=== PATIENT | female | born 1990 | race Caucasian/White ===

== ENCOUNTER → 2019-10-18 | Outpatient (CLI) | payer OTHER | LOC: LAB 10:14 | DX: R06.02 Shortness of breath (principal); M79.10 Myalgia, unspecified site; R53.83 Other fatigue; Z20.828 Contact with and (suspected) exposure to other viral communicable diseases ==

== ENCOUNTER 2019-10-24 08:22 | Emergency (ER) | payer OTHER ==
[~2019-10-24] VITALS: Wt 83.0 kg
[2019-10-24] MEDS ORDERED: NAPROXEN500 MG PO (08:58)
[2019-10-24] MEDS ORDERED: EXCEDRIN EXTRA1 EACH PO (08:58)
[2019-10-24] MEDS ORDERED: ZOFRAN ODT4 MG PO (08:59)
[2019-10-24] MEDS ORDERED: DAILY VALUE1 EACH PO (08:59)
[2019-10-24] MEDS ORDERED: KETOROLAC TROME10 MG PO (09:00)
[2019-10-24 09:23] LABS: EOS # 0.1 (0.04-0.40); EOS % 0.9 % (1.0-5.0); HEMATOCRIT 45.5 % (37.0-47.0); HEMOGLOBIN 15.2 g/dL (12.5-16.0); LYMPH# 1.6 (1.50-4.00); MEAN CELL VOLUME 89 fl (78-100); MEAN CORPUSCULAR HEMOGLOBIN 30 pg (27-31); MEAN CORPUSCULAR HGB CONC 33 g/dL (33-37); MEAN PLATELET VOLUME 11.6 fl (7.4-10.4); MONO # 0.6 (0.20-0.80); NEU # 4.2 (1.40-6.50); PLATELET COUNT 249 K/mm3 (130-400); RED BLOOD COUNT 5.09 M/mm3 (4.10-5.30); RED CELL DISTRIBUTION WIDTH 12.8 % (11.5-14.5); WHITE BLOOD COUNT 6.5 K/mm3 (4.8-10.8)
[2019-10-24 09:32] LABS: ALBUMIN 4.3 g/dL (3.5-5.0)
[2019-10-24 09:33] LABS: POTASSIUM 3.7 mmol/L (3.5-5.1)
[2019-10-24 09:34] LABS: CALCIUM 9.2 mg/dL (8.3-10.5)
[2019-10-24 09:35] LABS: TOTAL PROTEIN 6.8 g/dL (6.4-8.3)
[2019-10-24 09:36] LABS: URINE APPEARANCE CLOUDY; URINE BILIRUBIN NEGATIVE (NEGATIVE); URINE BLOOD NEGATIVE (NEGATIVE); URINE COLOR YELLOW; URINE GLUCOSE NEGATIVE (NEGATIVE); URINE KETONE 2+ (NEGATIVE); URINE LEUKOCYTE ESTERASE NEGATIVE (NEGATIVE); URINE NITRATE NEGATIVE (NEGATIVE); URINE PROTEIN(semi-quant) NEGATIVE (NEGATIVE); URINE UROBILINOGEN NORMAL (NORMAL)
[2019-10-24 09:37] LABS: URINE MUCUS PRESENT (NOT PRESENT)
[2019-10-24 09:37] LABS: TOTAL BILIRUBIN 0.9 mg/dL (0.2-1.2)
[2019-10-24] MEDS ORDERED: PEPTO-BISM262 MG/15 (10:53)
[2019-10-24] MEDS ORDERED: PERCOCET 325 MG1 TA2 PO (14:06)
[2019-10-24] MEDS ORDERED: ONDANSETRON ODT8 MG PO (14:06)
[2019-10-24] MEDS ORDERED: PHENERGAN 25 TA25 MG PO (14:06)
[2019-10-24 15:25] VITALS: BP 108/68
== END 2019-10-24 15:33 | disposition home or self-care (01) ==
LOC: ED 08:22
PROVIDERS: Nurse Practitioner Primary Care
DX: R10.32 Left lower quadrant pain (principal); R11.2 Nausea with vomiting, unspecified; R19.7 Diarrhea, unspecified; Z79.82 Long term (current) use of aspirin; Z20.828 Contact with and (suspected) exposure to other viral communicable diseases
CPT/HCPCS: J2405; J7030; J7120

== ENCOUNTER → 2019-10-26 | Outpatient (CLI) | payer OTHER ==
[2019-10-24 15:25] VITALS: BP 108/68
[~2019-10-26] MED LIST: DAILY VALUE1 EACH PO; EXCEDRIN EXTRA1 EACH PO; KETOROLAC TROME10 MG PO; NAPROXEN500 MG PO; ONDANSETRON ODT8 MG PO; PEPTO-BISM262 MG/15; PERCOCET 325 MG1 TA2 PO; PHENERGAN 25 TA25 MG PO; ZOFRAN ODT4 MG PO
== END ==
LOC: RAD 10-25 07:30
DX: R10.32 Left lower quadrant pain (principal); Z87.42 Personal history of other diseases of the female genital tract

== ENCOUNTER 2020-06-07 14:12 | Emergency (ER) | payer BC ==
[~2020-06-07] VITALS: Ht 162.6 cm; Wt 74.1 kg
[2020-06-07] MEDS ORDERED: VITAFOL-OB+DHA1 KIT PO (15:18)
[2020-06-07 17:14] LABS: EOS % 0.4 % (1.0-5.0); HEMOGLOBIN 14.3 g/dL (12.5-16.0); LYMPH# 1.9 (1.50-4.00); MEAN CELL VOLUME 90 fl (78-100); MEAN CORPUSCULAR HEMOGLOBIN 30 pg (27-31); MEAN CORPUSCULAR HGB CONC 33 g/dL (33-37); MEAN PLATELET VOLUME 11.9 fl (7.4-10.4); MONO # 0.4 (0.20-0.80); NEU # 4.9 (1.40-6.50); PLATELET COUNT 248 K/mm3 (130-400); RED BLOOD COUNT 4.77 M/mm3 (4.10-5.30); RED CELL DISTRIBUTION WIDTH 12.6 % (11.5-14.5); WHITE BLOOD COUNT 7.3 K/mm3 (4.8-10.8)
[2020-06-07 17:23] LABS: ALBUMIN 4.3 g/dL (3.5-5.0); POTASSIUM 3.7 mmol/L (3.5-5.1)
[2020-06-07 17:24] LABS: CALCIUM 9.4 mg/dL (8.3-10.5)
[2020-06-07 17:25] LABS: TOTAL PROTEIN 6.8 g/dL (6.4-8.3)
[2020-06-07 17:27] LABS: TOTAL BILIRUBIN 0.5 mg/dL (0.2-1.2)
[2020-06-07 17:33] LABS: URINE APPEARANCE CLEAR; URINE BILIRUBIN NEGATIVE (NEGATIVE); URINE BLOOD NEGATIVE (NEGATIVE); URINE COLOR YELLOA; URINE GLUCOSE NEGATIVE (NEGATIVE); URINE KETONE NEGATIVE (NEGATIVE); URINE LEUKOCYTE ESTERASE NEGATIVE (NEGATIVE); URINE NITRATE NEGATIVE (NEGATIVE); URINE PROTEIN(semi-quant) NEGATIVE (NEGATIVE); URINE UROBILINOGEN NORMAL (NORMAL)
[2020-06-07 17:34] LABS: URINE MUCUS PRESENT (NOT PRESENT)
[2020-06-07] MEDS ORDERED: KETOROLAC10 MG PO (18:44)
[2020-06-07] MEDS ORDERED: PYRIDIUM200 M2 PO (18:44)
[2020-06-07] MEDS ORDERED: ZOFRAN ODT4 MG PO (18:44)
[2020-06-07 19:20] VITALS: BP 106/65
== END 2020-06-07 19:20 | disposition home or self-care (01) ==
LOC: ED 14:12
PROVIDERS: Family Medicine
DX: M54.5 Low back pain (principal); N80.9 Endometriosis, unspecified; R30.0 Dysuria
CPT/HCPCS: J1885; J2360

== ENCOUNTER → 2020-07-11 | Outpatient (CLI) | payer BC ==
[~2020-07-11] MED LIST changes: +KETOROLAC10 MG PO; +PYRIDIUM200 M2 PO; +VITAFOL-OB+DHA1 KIT PO
[2020-07-11 09:04] LABS: HEMATOCRIT 42.6 % (37.0-47.0); HEMOGLOBIN 14.2 g/dL (12.5-16.0); MEAN CELL VOLUME 90 fl (78-100); RED BLOOD COUNT 4.75 M/mm3 (4.10-5.30); WHITE BLOOD COUNT 5.1 K/mm3 (4.8-10.8)
[2020-07-11 09:05] LABS: EOS # 0.1 (0.04-0.40); LYMPH# 1.8 (1.50-4.00); MEAN CORPUSCULAR HEMOGLOBIN 30 pg (27-31); MEAN CORPUSCULAR HGB CONC 33 g/dL (33-37); MEAN PLATELET VOLUME 11.1 fl (7.4-10.4); MONO # 0.4 (0.20-0.80); NEU # 2.9 (1.40-6.50); PLATELET COUNT 236 K/mm3 (130-400)
[2020-07-11 09:13] LABS: POTASSIUM 3.8 mmol/L (3.5-5.1)
[2020-07-11 09:14] LABS: CALCIUM 8.8 mg/dL (8.3-10.5)
[2020-07-11 09:15] LABS: TOTAL PROTEIN 6.3 g/dL (6.4-8.3)
[2020-07-11 09:17] LABS: TOTAL BILIRUBIN 0.8 mg/dL (0.2-1.2)
[2020-07-11 10:19] LABS: URINE APPEARANCE HAZY; URINE COLOR YELLOW
[2020-07-11 10:20] LABS: URINE BILIRUBIN NEGATIVE (NEGATIVE); URINE BLOOD NEGATIVE (NEGATIVE); URINE GLUCOSE NEGATIVE (NEGATIVE); URINE KETONE NEGATIVE (NEGATIVE); URINE LEUKOCYTE ESTERASE NEGATIVE (NEGATIVE); URINE MUCUS PRESENT (NOT PRESENT); URINE NITRATE NEGATIVE (NEGATIVE); URINE PROTEIN(semi-quant) NEGATIVE (NEGATIVE); URINE UROBILINOGEN NORMAL (NORMAL)
== END ==
LOC: LAB 08:46
PROVIDERS: Physician Assistant
DX: R10.9 Unspecified abdominal pain (principal)

== ENCOUNTER → 2020-07-12 | Outpatient (CLI) | payer BC | LOC: RAD 14:08 | DX: R10.9 Unspecified abdominal pain (principal) | CPT/HCPCS: Q9967 ==